=== PATIENT | female | born 1970 | race Caucasian/White ===

== ENCOUNTER → 2017-08-30 | Outpatient (CLI) | payer BC, OTHER ==
[2015-11-09 18:47] VITALS: BP 154/79
--- NOTE | 2017-08-30 15:17 | RAD ---
Examination: Lumbar spine, five views History: Pain in back and hip Findings: There is a dextroscoliosis with slight rotatory component. Alignment of vertebrae is normal . There is slight disc narrowing at the L4-5 interspace. No fracture or bone destruction is noted. Impression: No acute disease. Mild lumbar scoliosis with findings of degenerative disc disease at the L4-5 level. Reported By:
== END ==
LOC: RAD 14:42
PROVIDERS: ATTEND Nurse Practitioner Family
DX: M51.36 Other intervertebral disc degeneration, lumbar region (principal)
CPT/HCPCS: 72110